=== PATIENT | male | born 1960 | race Caucasian/White ===

== ENCOUNTER → 2019-10-24 | Outpatient (REF) | payer BC ==
[2019-10-26 08:09] LABS: LDL DIRECT 73 mg/dL (0-99)
== END ==
LOC: M LAB REF 17:07
PROVIDERS: ATTEND Internal Medicine
DX: E78.00 Pure hypercholesterolemia, unspecified (principal)

== ENCOUNTER → 2020-10-21 | Outpatient (REF) | payer BC | LOC: M LAB REF 16:17 | PROVIDERS: ATTEND Internal Medicine | DX: E78.00 Pure hypercholesterolemia, unspecified (principal) ==

== ENCOUNTER → 2021-06-30 | Outpatient (REF) | payer BC | LOC: M LAB REF 11:53 | PROVIDERS: ATTEND Internal Medicine | DX: I10 Essential (primary) hypertension (principal) ==

== ENCOUNTER → 2021-07-03 | Outpatient (CLI) | payer BC | LOC: M RAD 13:55 | PROVIDERS: ATTEND Internal Medicine | DX: R42 Dizziness and giddiness (principal) ==

== ENCOUNTER → 2021-11-04 | Outpatient (REF) | payer BC | LOC: M LAB REF 16:03 | PROVIDERS: ATTEND Internal Medicine | DX: E78.00 Pure hypercholesterolemia, unspecified (principal) ==

== ENCOUNTER → 2022-11-23 | Outpatient (REF) | payer BC ==
[2022-11-25 08:12] LABS: LDL DIRECT 65 mg/dL (0-99)
== END ==
LOC: M LAB REF 17:00
PROVIDERS: ATTEND Internal Medicine
DX: E78.2 Mixed hyperlipidemia (principal)

== ENCOUNTER 2023-03-15 12:01 | Day surgery (SDC) | payer BC ==
[~2023-03-15] VITALS: Ht 180.3 cm; Wt 102.7 kg
[~2023-03-15 12:01] MED LIST: AMLO1TAB24 PO; BAYE81TA10 PO; CHLO125TA PO; CLAR10CA3 PO; LISI40TA4 PO; MAGN400C PO; NS 1,000 ML IV ONE; OMEP40CA5 PO
[2023-03-15] MEDS ORDERED: fentaNYL 100 MCG/2 ML INJECTION As Ordered ONE (13:59)
[2023-03-15] MEDS ORDERED: LIDOCAINE 2% MDV 20ML VIAL As Ordered ONE (13:59)
[2023-03-15] MEDS ORDERED: propofoL 200 MG/20 ML VIAL As Ordered ONE (14:21)
[2023-03-15 14:55] VITALS: BP 158/81; O2SAT 97
== END 2023-03-15 14:59 | disposition home or self-care (01) ==
LOC: M OPP 12:01
PROVIDERS: ATTEND Internal Medicine Gastroenterology
DX: Z12.11 Encounter for screening for malignant neoplasm of colon (principal); Z86.010 Personal history of colon polyps; D12.4 Benign neoplasm of descending colon; K64.4 Residual hemorrhoidal skin tags; K64.8 Other hemorrhoids; K22.70 Barrett's esophagus without dysplasia; K29.70 Gastritis, unspecified, without bleeding; Z87.891 Personal history of nicotine dependence; G47.30 Sleep apnea, unspecified; Z99.89 Dependence on other enabling machines and devices; Z79.82 Long term (current) use of aspirin; Z79.83 Long term (current) use of bisphosphonates; Z79.899 Other long term (current) drug therapy; Z88.0 Allergy status to penicillin; Z88.1 Allergy status to other antibiotic agents
CPT/HCPCS: 43239; 45385; 88305; J3010